=== PATIENT | male | born 1935 | race Two or more races ===

== ENCOUNTER 2019-06-07 09:50 | Outpatient (CLI) | payer OTHER ==
[~2019-06-07 09:50] MED LIST: ATENOLOL25 MG; CATAFLAM50 MG; SYNTHROID50 MCG
== END 2019-06-07 15:39 | disposition home or self-care (01) ==
LOC: RAD 09:50
DX: J45.998 Other asthma (principal)

== ENCOUNTER 2019-06-26 09:15 | Outpatient (CLI) | payer OTHER | END 2019-06-26 09:20 | disposition home or self-care (01) | LOC: LAB 09:15 | DX: D51.0 Vitamin B12 deficiency anemia due to intrinsic factor deficiency (principal); E03.8 Other specified hypothyroidism; Z79.01 Long term (current) use of anticoagulants ==

== ENCOUNTER 2019-10-28 07:08 | Outpatient (CLI) | payer OTHER | END 2019-10-28 07:11 | disposition home or self-care (01) | LOC: SONOGRAMA 07:08 → MAMO-SONO 07:15 | PROVIDERS: ATTEND Specialist | DX: K75.81 Nonalcoholic steatohepatitis (NASH) (principal) ==

== ENCOUNTER 2020-01-07 07:37 | Outpatient (CLI) | payer OTHER | END 2020-01-07 07:41 | disposition home or self-care (01) | LOC: RAD 07:37 | PROVIDERS: ATTEND Internal Medicine Pulmonary Disease | DX: R05 Cough (principal) ==

== ENCOUNTER 2020-02-03 07:38 | Outpatient (CLI) | payer OTHER | END 2020-02-03 07:49 | disposition home or self-care (01) | LOC: LAB 07:38 | PROVIDERS: ATTEND Specialist | DX: D68.8 Other specified coagulation defects (principal); D64.89 Other specified anemias; K75.81 Nonalcoholic steatohepatitis (NASH); E03.8 Other specified hypothyroidism; I11.9 Hypertensive heart disease without heart failure; E78.49 Other hyperlipidemia ==

== ENCOUNTER → 2020-09-17 | Outpatient (CLI) | payer OTHER ==
[~2020-09-17] MED LIST changes: +MECLIZINE HCL25 MG PO
== END | disposition home or self-care (01) ==
LOC: MRI 11:18
PROVIDERS: ATTEND Psychiatry & Neurology Clinical Neurophysiology
DX: G93.89 Other specified disorders of brain (principal)
CPT/HCPCS: 70551

== ENCOUNTER 2020-11-22 04:32 | Emergency (ER) | payer OTHER ==
[~2020-11-22] VITALS: Ht 170.2 cm; Wt 56.7 kg
[~2020-11-22 04:32] MED LIST changes: -MECLIZINE HCL25 MG PO
[2020-11-22] MEDS ORDERED: MECLIZINE HCL25 MG PO (08:13)
== END 2020-11-22 08:22 | disposition home or self-care (01) ==
LOC: ER 04:32
DX: R42 Dizziness and giddiness (principal); I95.9 Hypotension, unspecified

== ENCOUNTER 2022-10-28 09:09 | Outpatient (CLI) | payer OTHER ==
[~2022-10-28 09:09] MED LIST changes: +MECLIZINE HCL25 MG PO
== END 2022-10-28 09:13 | disposition home or self-care (01) ==
LOC: RAD 09:09
PROVIDERS: ATTEND Specialist
DX: I10 Essential (primary) hypertension (principal)

== ENCOUNTER 2023-11-16 10:03 | Outpatient (CLI) | payer OTHER | END 2023-11-16 10:15 | disposition home or self-care (01) | LOC: MRI 10:03 | PROVIDERS: ATTEND Psychiatry & Neurology Clinical Neurophysiology | DX: M54.12 Radiculopathy, cervical region (principal) | CPT/HCPCS: 72141 ==

== ENCOUNTER → 2024-07-10 | Emergency (ER) | payer OTHER ==
[~2024-07-10] VITALS: Ht 165.1 cm; Wt 59.0 kg
[2024-07-10 22:58] LABS: URINE APPEARANCE Clear; URINE BACTERIA 12.2 uL (0.0-1933); URINE BILIRRUBIN Negative (NEGATIVE); URINE BLOOD Negative; URINE COLOR Yellow; URINE EPITHELIAL CELLS 2.5 uL (0.0-38.8); URINE GLUCOSE Negative (NEGATIVE); URINE KETONE Trace (NEGATIVE); URINE LEUKOCYTE Negative; URINE NITRATE Negative; URINE PROTEIN Negative (NEGATIVE); URINE UROBILINOGEN 0.2 E.U./dl; URINE WBC 2.8 uL (0.0-23.2)
[2024-07-10 23:00] LABS: HEMOGLOBIN 12.6 g/dL (13-16.00); MEAN CORPUSCULAR HEMOGLOBIN 28.8 pg (27.00-32.0); MEAN CORPUSCULAR HGB CONC 33.1 g/dl (32.0-36.0); PLATELET COUNT 174 K/uL (150-450); RED BLOOD COUNT 4.36 M/uL (4.00-6.00); RED CELL DISTRIBUTION WIDTH 13.9 % (11.5-14.5)
[2024-07-10 23:01] LABS: URINE CAST 0.44 uL (0.0-1.40); URINE RBC 0.8 uL (0.0-20.8)
[2024-07-10 23:13] LABS: CALCIUM 8.5 mg/dL (8.5-10.1); CREATININE SERUM 1.14 mg/dL (0.70-1.30); GFR 60.91; POTASSIUM 4.14 mEq/L (3.5-5.1)
== END | disposition left against medical advice (07) ==
LOC: ER 20:58
PROVIDERS: General Practice
DX: R00.2 Palpitations (principal)